=== PATIENT | male | born 1995 | race Caucasian/White ===

== ENCOUNTER 2020-10-13 10:29 | Emergency (ER) | payer SELFPAY ==
[~2020-10-13] VITALS: Ht 175.3 cm; Wt 103.6 kg
[2020-10-13 11:15] VITALS: BP 130/92; TEMP 97.7
[2020-10-13] MEDS ORDERED: FLEXERIL 1010 MG/TAB PO (12:00)
[2020-10-13] MEDS ORDERED: NAPROSYN500 MG PO (12:00)
[2020-10-13] MEDS ORDERED: NORCO 325 MG-51 TAB PO (12:00)
[2020-10-13 12:20] VITALS: PULSE 85
== END 2020-10-13 12:20 | disposition home or self-care (01) ==
LOC: COL.ER 10:29
DX: M54.16 Radiculopathy, lumbar region (principal)
CPT/HCPCS: J1100; J1885